=== PATIENT | male | born 1990 | race African-American/Black ===

== ENCOUNTER 2017-03-30 04:39 | Emergency (ER) | payer MEDICAID, OTHER ==
[~2017-03-30] VITALS: Ht 162.6 cm; Wt 87.0 kg
[~2017-03-30 04:39] MED LIST: ESTR0.3T3; [UNRECOGNIZED DRUG - REMARK]
[2017-03-30] MEDS: TETANUS, DIPHTHERIA, PERTUSSIS VAC/PF 0.5ML (>7YR OLD) IM ONE (09:02)
[2017-03-30] MEDS: HYDROCODONE/ACETAMINOPHEN 5/325MG TABLET PO ONE (09:02)
[2017-03-30 09:06] VITALS: BP 140/70
== END 2017-03-30 09:24 | disposition home or self-care (01) ==
LOC: ER 04:39
DX: S30.810A Abrasion of lower back and pelvis, initial encounter (principal); S50.312A Abrasion of left elbow, initial encounter; F17.200 Nicotine dependence, unspecified, uncomplicated; F12.10 Cannabis abuse, uncomplicated; V49.60XA Unspecified car occupant injured in collision with unspecified motor vehicles in traffic accident, initial encounter; Y93.89 Activity, other specified; Y92.89 Other specified places as the place of occurrence of the external cause; Y99.8 Other external cause status; Z98.890 Other specified postprocedural states
CPT/HCPCS: 70450; 72100; 73080; 90471; 90715; 99284; Z7610

== ENCOUNTER 2017-11-03 16:07 | Emergency (ER) | payer MEDICAID ==
[~2017-11-03] VITALS: Ht 162.6 cm; Wt 84.0 kg
[2017-11-03 17:44] LABS: CLARITY URINE CLEAR (CLEAR); COLOR URINE YELLOW (YELLOW); KETONES URINE NEGATIVE (NEGATIVE); LEUKOCYTE ESTERASE URINE NEGATIVE (NEGATIVE); NITRITE URINE NEGATIVE (NEGATIVE); OCCULT BLOOD URINE NEGATIVE (NEGATIVE); PROTEIN URINE NEGATIVE (NEGATIVE); SPECIFIC GRAVITY URINE 1.015 (1.005-1.030)
[2017-11-03 18:30] VITALS: BP 104/54
== END 2017-11-03 19:45 | disposition home or self-care (01) ==
LOC: ER 16:39
DX: Z11.3 Encounter for screening for infections with a predominantly sexual mode of transmission (principal); F17.200 Nicotine dependence, unspecified, uncomplicated
CPT/HCPCS: 81003; 99284; J7030; Z7610; 99283

== ENCOUNTER 2018-08-29 16:21 | Emergency (ER) | payer MEDICAID ==
[~2018-08-29] VITALS: Ht 165.1 cm; Wt 92.0 kg
[2018-08-29] MEDS ORDERED: HYDROCODONE/ACETAMINOPHEN 5/325MG TABLET PO ONE (23:00)
[2018-08-30 00:08] VITALS: BP 129/78
== END 2018-08-30 00:11 | disposition home or self-care (01) ==
LOC: ER 16:21
DX: S93.602A Unspecified sprain of left foot, initial encounter (principal); F17.210 Nicotine dependence, cigarettes, uncomplicated; F12.10 Cannabis abuse, uncomplicated; Z79.899 Other long term (current) drug therapy; W01.0XXA Fall on same level from slipping, tripping and stumbling without subsequent striking against object, initial encounter; Y93.89 Activity, other specified; Y92.89 Other specified places as the place of occurrence of the external cause; Y99.8 Other external cause status
CPT/HCPCS: 73630; 99283